=== PATIENT | male | born 1990 | race Hispanic/Latino ===

== ENCOUNTER 2017-07-26 00:32 | Inpatient (IN) | payer MEDICAID, OTHER ==
[~2017-07-26] VITALS: Ht 177.8 cm; Wt 131.5 kg
[2017-07-26 01:43] LABS: BASOPHILS % (AUTO) 0.3 % (0.0-5.0); EOSINOPHILS % (AUTO) 0.5 % (0.0-8.0); HEMATOCRIT 44.3 % (42-54); LYMPHOCYTES % (AUTO) 7.5 % (21.0-51.0); MEAN CORPUSCULAR HEMOGLOBIN 28.6 pg (27.0-33.0); MEAN CORPUSCULAR HGB CONC 33.8 g/dL (32.0-36.0); MEAN CORPUSCULAR VOLUME 84.7 fL (79-99); MONOCYTES % (AUTO) 7.1 % (3.0-13.0); NEUTROPHILS % (AUTO) 84.6 % (40.0-77.0); PLATELET COUNT (AUTO) 288 K/uL (130-400); RED BLOOD CELL COUNT(AUTO) 5.23 MIL/uL (4.50-6.20); RED CELL DISTRIBUTION WIDTH 14.6 % (11.0-15.5); WHITE BLOOD COUNT (AUTO) 14.1 K/uL (4.8-10.8)
[2017-07-26 01:43] LABS: APPEARANCE,URINE Clear (CLEAR); BILIRUBIN,URINE Negative (NEGATIVE); COLOR,URINE Yellow (YELLOW); GLUCOSE, URINE (UA) Negative (NEGATIVE); KETONES,URINE Trace mg/dL (NEGATIVE); LEUKOCYTE ESTERASE ,URINE Moderate (NEGATIVE); NITRATE,URINE Negative (NEGATIVE); OCCULT BLOOD,URINE Large (NEGATIVE); PH,URINE 5.5 (5.0-8.0); PROTEIN,URINE Trace (NEGATIVE)
[2017-07-26 01:53] LABS: CREATININE 1.1 mg/dL (0.5-1.5); POTASSIUM 4.1 mmol/L (3.5-5.1)
[2017-07-26 01:58] LABS: ALBUMIN 3.6 g/dL (3.5-5.0); BILIRUBIN,TOTAL 0.2 mg/dL (0.2-1.0)
[2017-07-26 01:59] LABS: BACTERIA,URINE Few /HPF (None Seen); MUCUS,URINE Many LPF (None Seen); SQUAMOUS EPITHELIAL CELL,UR Moderate /LPF (0-2)
[2017-07-26 02:00] LABS: CALCIUM OXALATE CRYSTALS,UR Moderate /LPF (None Seen)
[2017-07-26] MEDS ORDERED: SODIUM CHLORIDE 0.9% 1000ML 1,000 ML IV ONE ×3 (02:39→05:15)
[2017-07-26] MEDS ORDERED: MORPHINE SULFATE 4 MG/1ML SYG ONE (02:39)
[2017-07-26] MEDS ORDERED: KETOROLAC TROMETHAMINE 30MG/ML ONE (02:39)
[2017-07-26] MEDS ORDERED: TAMSULOSIN HCL 0.4 MG CAP.ER.24H ONE (02:39)
[2017-07-26] MEDS ORDERED: ONDANSETRON HCL 4 MG/2 ML VIAL ONE ×2 (02:39→05:15)
[2017-07-26] MEDS ORDERED: HYDROMORPHONE HCL 0.5 MG/0.5 ML ML ONE (05:15)
[2017-07-26] MEDS ORDERED: CEFTRIAXONE SODIUM 1 GM ONE (09:16)
[2017-07-26] MEDS ORDERED: 1/2 NORMAL SALINE 1,000 ML IV ONE (09:17)
[2017-07-26 11:30] VITALS: BP 123/65
[2017-07-26] MEDS ORDERED: MORPHINE-NS 50 MG/50 ML 50 ML IV ONE (13:00)
[2017-07-26] MEDS: 1/2 NORMAL SALINE 1,000 ML IV SCH ×2 (15:27→23:13)
[2017-07-26] MEDS ORDERED: MORPHINE-NS 50 MG/50 ML 50 ML IV PRN (15:30)
[2017-07-26] MEDS ORDERED: NALOXONE HCL 0.4 MG/1 ML ML IVP PRN (15:30)
[2017-07-26 16:00] VITALS: BP 135/70
[2017-07-26 19:32] VITALS: BP 142/80
[2017-07-26] MEDS: ONDANSETRON HCL 4 MG/2 ML VIAL IVP PRN (23:19)
[2017-07-26 23:27] VITALS: BP 147/78
[2017-07-27 04:54] VITALS: BP 125/53
[2017-07-27 05:47] LABS: HEMATOCRIT 39.6 % (42-54); MEAN CORPUSCULAR HEMOGLOBIN 28.9 pg (27.0-33.0); MEAN CORPUSCULAR HGB CONC 33.5 g/dL (32.0-36.0); MEAN CORPUSCULAR VOLUME 86.3 fL (79-99); PLATELET COUNT (AUTO) 261 K/uL (130-400); RED BLOOD CELL COUNT(AUTO) 4.59 MIL/uL (4.50-6.20); RED CELL DISTRIBUTION WIDTH 14.7 % (11.0-15.5); WHITE BLOOD COUNT (AUTO) 9.9 K/uL (4.8-10.8)
[2017-07-27 06:02] LABS: ALBUMIN 2.8 g/dL (3.5-5.0); BILIRUBIN,TOTAL 0.5 mg/dL (0.2-1.0); CREATININE 0.7 mg/dL (0.5-1.5); POTASSIUM 3.8 mmol/L (3.5-5.1); TOTAL PROTEIN, SERUM 6.6 g/dL (6.0-8.3)
[2017-07-27 08:04] VITALS: BP 109/63
[2017-07-27] MEDS: 1/2 NORMAL SALINE 1,000 ML IV SCH ×3 (08:32→17:12)
[2017-07-27] MEDS: CEFTRIAXONE SODIUM 1 GM IVP SCH (08:33)
[2017-07-27] MEDS: TAMSULOSIN HCL 0.4 MG CAP.ER.24H PO SCH (08:33)
[2017-07-27 11:33] VITALS: BP 148/66
[2017-07-27] MEDS: ACETAMINOPHEN 325 MG TAB PO PRN (15:30)
[2017-07-27 16:58] VITALS: BP 147/80
[2017-07-27] MEDS: ONDANSETRON HCL 4 MG/2 ML VIAL IVP PRN (19:16)
[2017-07-27 19:30] VITALS: BP 131/91
[2017-07-27] MEDS ORDERED: IOPAMIDOL-370 75 ML VIAL IV ONE (20:08)
[2017-07-28] VITALS (7 sets, daily range): BP systolic 123–162; BP diastolic 59–85
[2017-07-28] MEDS: 1/2 NORMAL SALINE 1,000 ML IV SCH ×3 (03:21→19:40)
[2017-07-28] MEDS: TAMSULOSIN HCL 0.4 MG CAP.ER.24H PO SCH (10:12)
[2017-07-28] MEDS: CEFTRIAXONE SODIUM 1 GM IVP SCH (10:12)
[2017-07-28] MEDS: ONDANSETRON HCL 4 MG/2 ML VIAL IVP PRN ×2 (11:54→19:40)
[2017-07-29] VITALS (19 sets, daily range): BP systolic 121–156; BP diastolic 62–88
[2017-07-29] MEDS: 1/2 NORMAL SALINE 1,000 ML IV SCH ×3 (03:07→16:12)
[2017-07-29] MEDS: TAMSULOSIN HCL 0.4 MG CAP.ER.24H PO SCH ×2 (09:00→16:13)
[2017-07-29] MEDS: CEFTRIAXONE SODIUM 1 GM IVP SCH (11:07)
[2017-07-29] MEDS ORDERED: LACTATED RINGERS 1000ML 1,000 ML IV ONE (11:41)
[2017-07-29] MEDS ORDERED: GLYCOPYRROLATE 0.2 MG/ML 5 ML VIAL ONE (12:20)
[2017-07-29] MEDS ORDERED: ONDANSETRON HCL 4 MG/2 ML VIAL ONE (12:20)
[2017-07-29] MEDS ORDERED: LIDOCAINE PF 2% 5ML ABBOJECT ONE (12:20)
[2017-07-29] MEDS ORDERED: DEXAMETHASONE SOD PHOSPHATE 10MG/ML 1ML VIAL ONE (12:20)
[2017-07-29] MEDS ORDERED: FENTANYL CITRATE PF 50 MCG/1 ML 2ML VIAL ONE ×2 (12:21→13:29)
[2017-07-29] MEDS ORDERED: PROPOFOL 10 MG/ML 20ML VIAL IV ONE (12:21)
[2017-07-29] MEDS ORDERED: MIDAZOLAM HCL 1 MG/ML 2ML VIAL ONE (12:21)
[2017-07-29] MEDS ORDERED: MEPERIDINE-PF 50 MG/ML SYG ONE (13:11)
[2017-07-29] MEDS ORDERED: KETOROLAC TROMETHAMINE 30MG/ML ONE (13:21)
[2017-07-30] MEDS: 1/2 NORMAL SALINE 1,000 ML IV SCH (03:40)
[2017-07-30 04:00] VITALS: BP 127/70
[2017-07-30 05:35] LABS: BASOPHILS % (AUTO) 0.6 % (0.0-5.0); EOSINOPHILS % (AUTO) 4.4 % (0.0-8.0); HEMATOCRIT 43.1 % (42-54); LYMPHOCYTES % (AUTO) 22.9 % (21.0-51.0); MEAN CORPUSCULAR HEMOGLOBIN 29.2 pg (27.0-33.0); MEAN CORPUSCULAR HGB CONC 34.2 g/dL (32.0-36.0); MEAN CORPUSCULAR VOLUME 85.4 fL (79-99); NEUTROPHILS % (AUTO) 59.1 % (40.0-77.0); PLATELET COUNT (AUTO) 274 K/uL (130-400); RED BLOOD CELL COUNT(AUTO) 5.04 MIL/uL (4.50-6.20); RED CELL DISTRIBUTION WIDTH 14.5 % (11.0-15.5)
[2017-07-30 05:50] LABS: CREATININE 0.9 mg/dL (0.5-1.5); POTASSIUM 4.4 mmol/L (3.5-5.1)
[2017-07-30 07:45] VITALS: BP 152/92
[2017-07-30] MEDS: CEFTRIAXONE SODIUM 1 GM IVP SCH (09:19)
[2017-07-30] MEDS: TAMSULOSIN HCL 0.4 MG CAP.ER.24H PO SCH (09:19)
[2017-07-30] MEDS: ACETAMINOPHEN 325 MG TAB PO PRN (09:19)
[2017-07-30 12:00] VITALS: BP 138/80
[2017-09-14] MEDS ORDERED: ACET1TAB15 PO (14:04)
== END 2017-07-30 16:43 | disposition home or self-care (01) | DRG 694 ==
LOC: EDH 00:32 → OBSVTOIN 07:40 → EDHIP 07:40 → 4CH 10:29
PROVIDERS: ADMIT Internal Medicine; ATTEND Internal Medicine
PROC: BT1D1ZZ Fluoroscopy of Right Kidney, Ureter and Bladder using Low Osmolar Contrast (ICD-10-PCS; 2017-07-29)
PROC: 0T768DZ Dilation of Right Ureter with Intraluminal Device, Via Natural or Artificial Opening Endoscopic (ICD-10-PCS; principal; 2017-07-29 12:20)
DX: N13.2 Hydronephrosis with renal and ureteral calculous obstruction (principal); I10 Essential (primary) hypertension; Z28.21 Immunization not carried out because of patient refusal; Z90.49 Acquired absence of other specified parts of digestive tract
CPT/HCPCS: 36415; 74176; 74400; 74420; 80048; 80053; 81001; 85025; 85027; 87088; A4218; A4606; C1758; C1769; C2617; J0696; J1100; J1170; J1885; J2001; J2175; J2250; J2270; J2405; J2704; J3010; J3490; J7030; J7120; Q9967

== ENCOUNTER → 2017-09-14 | Outpatient (CLI) | payer OTHER ==
[~2017-09-14] MED LIST: ACET1TAB15 PO
== END | disposition home or self-care (01) ==
LOC: RAH 11:18
PROVIDERS: ATTEND Urology
DX: N20.0 Calculus of kidney (principal)
CPT/HCPCS: 74176

== ENCOUNTER 2017-09-15 06:32 | Observation (INO) | payer OTHER ==
[2017-09-14 13:30] VITALS: BP 129/77
[2017-09-14 13:39] LABS: HEMATOCRIT 44.3 % (42-54); MEAN CORPUSCULAR HEMOGLOBIN 28.9 pg (27.0-33.0); MEAN CORPUSCULAR HGB CONC 33.7 g/dL (32.0-36.0); MEAN CORPUSCULAR VOLUME 85.9 fL (79-99); PLATELET COUNT (AUTO) 328 K/uL (130-400); RED BLOOD CELL COUNT(AUTO) 5.16 MIL/uL (4.50-6.20); RED CELL DISTRIBUTION WIDTH 15.2 % (11.0-15.5); WHITE BLOOD COUNT (AUTO) 10.3 K/uL (4.8-10.8)
[2017-09-14 13:46] LABS: APPEARANCE,URINE Cloudy (CLEAR); BILIRUBIN,URINE Negative (NEGATIVE); COLOR,URINE Orange (YELLOW); GLUCOSE, URINE (UA) Negative (NEGATIVE); KETONES,URINE Negative (NEGATIVE); LEUKOCYTE ESTERASE ,URINE Moderate (NEGATIVE); NITRATE,URINE Negative (NEGATIVE); OCCULT BLOOD,URINE Large (NEGATIVE); PH,URINE 5.5 (5.0-8.0); PROTEIN,URINE POS 2+ (NEGATIVE)
[2017-09-14 13:49] LABS: CREATININE 0.9 mg/dL (0.5-1.5); POTASSIUM 4.3 mmol/L (3.5-5.1)
[2017-09-14 13:51] LABS: BACTERIA,URINE Rare /HPF (None Seen); RBC,URINE TNTC /HPF (0-1); SQUAMOUS EPITHELIAL CELL,UR Rare /HPF (0-2); WBC,URINE 0-1 /HPF (0-1)
[2017-09-14 14:08] LABS: INR 1.01 (0.85-1.15); PARTIAL THROMBOPLASTIN TIME 27.4 SEC (26.3-35.5); PROTHROMBIN TIME 10.4 SEC (9.6-11.6)
[2017-09-15] VITALS (27 sets, daily range): BP systolic 117–153; BP diastolic 67–86
[~2017-09-15] VITALS: Ht 175.3 cm; Wt 134.4 kg
[2017-09-15] MEDS: CEFAZOLIN SODIUM 1 GM VIAL IVP SCH ×4 (06:30→21:55)
[2017-09-15] MEDS ORDERED: GLYCOPYRROLATE 0.2 MG/ML 5 ML VIAL ONE (06:44)
[2017-09-15] MEDS ORDERED: LIDOCAINE PF 2% 5ML ABBOJECT ONE (06:44)
[2017-09-15] MEDS ORDERED: DEXAMETHASONE SOD PHOSPHATE 10MG/ML 1ML VIAL ONE (06:44)
[2017-09-15] MEDS ORDERED: MIDAZOLAM HCL 1 MG/ML 2ML VIAL ONE (06:45)
[2017-09-15] MEDS ORDERED: FENTANYL CITRATE PF 50 MCG/1 ML 2ML VIAL ONE (06:45)
[2017-09-15] MEDS ORDERED: PROPOFOL 10 MG/ML 20ML VIAL IV ONE (06:45)
[2017-09-15] MEDS ORDERED: LACTATED RINGERS 1000ML 1,000 ML IV ONE (06:52)
[2017-09-15] MEDS ORDERED: ISOVUE-370 50ML VIAL IV ONE (07:05)
[2017-09-15] MEDS ORDERED: PHENYLEPHRINE HCL 10 MG/ML 1ML VIAL IV ONE (07:26)
[2017-09-15] MEDS ORDERED: NEOSTIGMINE METHYLSULFATE 1MG/ML IV ONE (07:50)
[2017-09-15] MEDS ORDERED: MEPERIDINE-PF 25 MG/ML SYG ONE ×2 (08:23→08:35)
[2017-09-15] MEDS ORDERED: ONDANSETRON HCL MDV 20ML 2 MG/ML VIAL IVP PRN (09:45)
[2017-09-15] MEDS ORDERED: ACETAMINOPHEN-CODEINE 300/30MG TAB PO PRN (10:00)
[2017-09-15] MEDS ORDERED: MEPERIDINE-PF 100 MG/ML SYG IM PRN (10:00)
[2017-09-15] MEDS: DEXTROSE 5 %-0.45 % NACL 1,000 ML IV SCH ×2 (10:58→22:04)
[2017-09-16] VITALS: BP 135/77
[2017-09-16 04:00] VITALS: BP 113/71
[2017-09-16] MEDS: CEFAZOLIN SODIUM 1 GM VIAL IVP SCH (05:34)
[2017-09-16 05:41] LABS: MEAN CORPUSCULAR HEMOGLOBIN 28.8 pg (27.0-33.0); MEAN CORPUSCULAR HGB CONC 33.5 g/dL (32.0-36.0); PLATELET COUNT (AUTO) 280 K/uL (130-400); RED BLOOD CELL COUNT(AUTO) 4.65 MIL/uL (4.50-6.20); RED CELL DISTRIBUTION WIDTH 14.9 % (11.0-15.5); WHITE BLOOD COUNT (AUTO) 13.2 K/uL (4.8-10.8)
[2017-09-16 05:53] LABS: CREATININE 0.8 mg/dL (0.5-1.5); POTASSIUM 3.6 mmol/L (3.5-5.1)
[2017-09-16 07:00] VITALS: BP 123/70
[2017-09-16] MEDS ORDERED: TYLENOL W CODEINE PO PRN (09:00)
== END 2017-09-16 10:28 | disposition home or self-care (01) ==
LOC: SUH 06:32 → DAH 06:32 → SUH 06:33 → DAHIP 06:33 → 4BH 09:04
PROVIDERS: ADMIT Urology; ATTEND Urology
DX: N20.1 Calculus of ureter (principal)
CPT/HCPCS: 36415 ×2; 52332; 71046; 74420; 80048 ×2; 81001; 85027 ×2; 85610; 85730; 87088; 88300; 93005; 96374; 96376 ×2; A4218 ×4; A4354; A4358; A4600; A4606; A4930; A5113; C1751; C1769 ×4; C2617; G0378 ×28; J0690 ×4; J1100; J2001; J2175 ×2; J2250; J2370; J2704; J2710; J3010; J3490; J7042 ×2; J7120; Q9967

== ENCOUNTER 2018-12-26 20:47 | Observation (INO) | payer OTHER ==
[~2018-12-26] VITALS: Ht 162.6 cm; Wt 136.1 kg
[2018-12-26 21:15] LABS: BASOPHILS % (AUTO) 0.7 % (0.0-5.0); EOSINOPHILS % (AUTO) 3.4 % (0.0-8.0); HEMATOCRIT 43.7 % (42-54); LYMPHOCYTES % (AUTO) 28.3 % (21.0-51.0); MEAN CORPUSCULAR HEMOGLOBIN 28.9 pg (27.0-33.0); MEAN CORPUSCULAR VOLUME 87.4 fL (79-99); MONOCYTES % (AUTO) 9.6 % (3.0-13.0); PLATELET COUNT (AUTO) 277 K/uL (130-400); RED CELL DISTRIBUTION WIDTH 14.7 % (11.0-15.5)
[2018-12-26] MEDS ORDERED: PROCHLORPERAZINE EDISYLATE 10 MG/2 ML VIAL ONE (21:17)
[2018-12-26] MEDS ORDERED: DiphenhydrAMINE HCL 50 MG/ML VIAL ONE (21:17)
[2018-12-26] MEDS ORDERED: ACETAMINOPHEN 325 MG TAB ONE (21:17)
[2018-12-26] MEDS ORDERED: SODIUM CHLORIDE 0.9% 1000ML 1,000 ML IV ONE (21:19)
[2018-12-26 21:30] LABS: CREATININE 0.9 mg/dL (0.5-1.5); POTASSIUM 3.6 mmol/L (3.5-5.1)
[2018-12-26 21:33] LABS: ALBUMIN 3.3 g/dL (3.5-5.0)
[2018-12-26 21:50] LABS: BILIRUBIN,TOTAL 0.2 mg/dL (0.2-1.0); TOTAL PROTEIN, SERUM 7.4 g/dL (6.0-8.3)
[2018-12-26 21:58] LABS: B-TYPE NATRIURETIC PEPTIDE 9 pg/mL (0-100)
[2018-12-26] MEDS ORDERED: ASPIRIN 81MG TAB.CHEW ONE (22:27)
[2018-12-26] MEDS ORDERED: METOPROLOL TARTRATE 25 MG TAB ONE (22:50)
[2018-12-27] MEDS ORDERED: METOPROLOL TARTRATE 25 MG TAB PO SCH (01:00)
[2018-12-27] MEDS ORDERED: ONDANSETRON HCL 4 MG/2 ML VIAL IVP PRN (01:15)
[2018-12-27] MEDS ORDERED: MORPHINE SULFATE 2 MG/ML 1ML SYG IVP PRN (01:15)
[2018-12-27] MEDS ORDERED: NITROGLYCERIN 0.4 MG SL TAB SL PRN (01:15)
[2018-12-27 04:35] VITALS: BP 120/68
--- NOTE | 2018-12-27 04:50 | NUR ---
ADMIT PT ADMITTED TO ROOM 402, AAOX3. DENIES ANY CP AT THIS TIME. ADMISSION CARE DONE. ADMISSION DATA BASE COMPLETED. TELE MONITOR PLACED, READING AT SINUS SINDY ON THE 50'S. PT'S PIV ACCIDENTALLY PULLED OUT BY PT WHEN MOVING IN BED, CATHETER INTACT. RE-INSERTED PIV G20 TO LEFT WRIST. PT TOLERATED RE-INSERTION WELL. IN FOR MORE CARE AND MANAGEMENT. Addendum: 12/27/18 at 0608 by BEBETO TRAN RN RN Amended: Links added.
[2018-12-27 07:54] VITALS: BP 120/63
[2018-12-27] MEDS: METOPROLOL TARTRATE 25 MG TAB PO SCH ×2 (09:00→20:30)
[2018-12-27] MEDS: PANTOPRAZOLE SODIUM 40 MG TABLET.DR PO SCH (09:09)
[2018-12-27] MEDS: ASPIRIN 325 MG TABLET PO SCH (09:09)
--- NOTE | 2018-12-27 09:09 | NUR ---
Scheduled metoprolol due at present, BP currently 120/63,but hr is 58 manually. Clarified with Rosetta Shafer NP with [facility]. Rec'd instructions to hold for SBP less than 110 and HR less than 60.
[2018-12-27] MEDS: ENOXAPARIN SODIUM 40 MG/0.4 ML SYRINGE SQ SCH (09:10)
[2018-12-27] MEDS: ACETAMINOPHEN 325 MG TAB PO PRN ×2 (09:25→15:41)
[2018-12-27 09:46] LABS: CREATINE KINASE, TOTAL 234 U/L (21-232); HEMOGLOBIN A1C 5.8 % (4.0-6.0); MYOGLOBIN 49 ng/mL (10-92); TROPONIN I < 0.04 ng/mL (0.00-0.06)
--- NOTE | 2018-12-27 09:50 | NUR ---
INITIAL MET W PT ALONE, AAOX3, [employer] OF [employer], EMPLOYED, LIVES W MOM, WORKS IN HEALTH CARE, STRONG FAMILY HX OF HEART DISEASE, ADMIT W CHEST PAIN, APPEARS ANXIOUS ABOUT HIS RISK FACTORS RD CONSULT REQUESTED TO JOSEPH GARCÍA, DCP IS HOME CM TO FOLLOW Addendum: 12/27/18 at 1700 by AILYN NAJERA RN CM Amended: Links added.
[2018-12-27] MEDS ORDERED: POTASSIUM CHLORIDE 20MEQ/100ML 100 ML IV PRN (10:15)
[2018-12-27] MEDS ORDERED: POTASSIUM CHLORIDE 10% ELIXIR 20 MEQ/15 ML UDCUP PO PRN (10:15)
[2018-12-27] MEDS ORDERED: LIDOCAINE HCL-MPF 1% 2ML VIAL IVP PRN (10:15)
--- NOTE | 2018-12-27 10:24 | NUR ---
Luis Valenzuela of [facility] consult.
[2018-12-27 10:52] VITALS: BP 136/70
[2018-12-27 12:05] LABS: AMPHET/METH SCREEN,URINE NEGATIVE (NEGATIVE); BARBITURATE SCREEN, URINE NEGATIVE (NEGATIVE); BENZODIAZEPINES SCREEN,URINE NEGATIVE (NEGATIVE); CANNABINOID SCREEN,URINE POSITIVE (NEGATIVE); COCAINE SCREEN,URINE NEGATIVE (NEGATIVE); OPIATE SCREEN,URINE NEGATIVE (NEGATIVE); PHENCYCLIDINE SCREEN,URINE NEGATIVE (NEGATIVE)
[2018-12-27 15:37] LABS: CREATINE KINASE, TOTAL 216 U/L (21-232); MYOGLOBIN 42 ng/mL (10-92); TROPONIN I < 0.04 ng/mL (0.00-0.06)
[2018-12-27] MEDS: POTASSIUM CHLORIDE 20 MEQ ERTAB PO PRN ×2 (15:41→17:16)
[2018-12-27] MEDS ORDERED: KETOROLAC TROMETHAMINE 15MG/ML IV PRN (15:45)
--- NOTE | 2018-12-27 15:54 | NUR ---
Diet Education LIUDMILA provided Heart Healthy Diet education as Pt request for education d/t admit for chest pain and family Hx of CVD (as per RN). RD reviewed reference materials and handouts with Pt. Pt engaged during diet education. Pt with no questions but verbalized understanding and motivation to review educational materials. LIUDMILA encouraged Pt to notify as questions or concerns arise. RD to follow up. Addendum: 12/27/18 at [address] RD Amended: Links added.
[2018-12-27 16:00] VITALS: BP 130/70
[2018-12-27] MEDS ORDERED: KETOROLAC TROMETHAMINE 15MG/ML ONE (16:15)
[2018-12-27 19:30] VITALS: BP 133/81
--- NOTE | 2018-12-27 20:30 | NUR ---
MEDS SHIFT ASSESSMENT DONE, PLEASE REFER TO CHARTS. DUE MEDS ADMINISTERED, TOLERATED WELL. KEPT RESTED AND COMFORTABLE. CALL LIGHT WITHIN REACH. WILL MONITOR PT. Addendum: 12/28/18 at 0046 by BEBETO TRAN RN RN Amended: Links added.
--- NOTE | 2018-12-27 21:55 | NUR ---
PAIN PT COMPLAINTS OF HEADACHE. MEDICATED WITH TORADOL IV. KEPT RESTED IN BED. WILL RE-ASSESS PT.
[2018-12-28] VITALS: BP 109/59
--- NOTE | 2018-12-28 02:00 | NUR ---
ROUNDS PT RESTING WELL, FAIRLY ASLEEP WITH RESPIRATIONS EVEN AND UNLABORED. NO NOTED DISTRESS. KEPT UNDISTURBED FOR NOW. WILL CONTINUE TO MONITOR. CALL LIGHT WITHIN REACH.
[2018-12-28 04:00] VITALS: BP 126/71
[2018-12-28 04:36] LABS: BASOPHILS % (AUTO) 0.3 % (0.0-5.0); EOSINOPHILS % (AUTO) 3.6 % (0.0-8.0); HEMATOCRIT 42.8 % (42-54); LYMPHOCYTES % (AUTO) 27.7 % (21.0-51.0); MEAN CORPUSCULAR HEMOGLOBIN 29.5 pg (27.0-33.0); MEAN CORPUSCULAR HGB CONC 33.2 g/dL (32.0-36.0); MEAN CORPUSCULAR VOLUME 88.7 fL (79-99); MONOCYTES % (AUTO) 8.6 % (3.0-13.0); NEUTROPHILS % (AUTO) 59.8 % (40.0-77.0); PLATELET COUNT (AUTO) 287 K/uL (130-400); RED BLOOD CELL COUNT(AUTO) 4.82 MIL/uL (4.50-6.20); WHITE BLOOD COUNT (AUTO) 9.8 K/uL (4.8-10.8)
[2018-12-28 04:59] LABS: CREATININE 1.1 mg/dL (0.5-1.5); PHOSPHORUS 4.2 mg/dL (2.5-4.9); POTASSIUM 4.2 mmol/L (3.5-5.1)
--- NOTE | 2018-12-28 06:15 | NUR ---
REPORT REPORT GIVEN TO TELMA STUART SHIFT NURSE. FOR MORE CARE AND MANAGEMENT.
[2018-12-28 07:40] VITALS: BP 126/65
[2018-12-28] MEDS: METOPROLOL TARTRATE 25 MG TAB PO SCH (08:43)
[2018-12-28] MEDS: PANTOPRAZOLE SODIUM 40 MG TABLET.DR PO SCH (08:43)
[2018-12-28] MEDS: ASPIRIN 325 MG TABLET PO SCH (08:43)
[2018-12-28] MEDS: ENOXAPARIN SODIUM 40 MG/0.4 ML SYRINGE SQ SCH (08:44)
--- NOTE | 2018-12-28 10:24 | NUR ---
2-D ECHO CALLED [facility] AND WAS SENT TO [email or web address]. MESSAGE WAS LEFT THAT THE PATIENT IS READY FOR DISCHARGE ONCE ECHO IS COMPLETE. PENDING CALL BACK.
[2018-12-28 11:00] VITALS: BP 122/62
--- NOTE | 2018-12-28 12:26 | NUR ---
CALL TO [employer] T/C PLACED TO [phone], NO ANSWER, LEFT MESSAGE TO CALL NARC[facility]. CALL SASHA Buchanan DIRECTOR, TO INFORM HIM.
--- NOTE | 2018-12-28 14:25 | NUR ---
INSTRUCTIONS DISCHARGE INSTRUCTIONS GIVEN TO PATIENT USING TEACH BACK. IV REMOVED FROM LEFT FOREARM WITH TIP INTACT. DIRECT PRESSURE APPLIED UNTIL BLEEDING CONTROLLED THEN SITE COVERED WITH GAUZE AND SECURED WITH TAPE. F/U APPOINTMENT WITH HEART CLINIC MADE WELL AN OUTPATIENT 2-D ECHO. NO QUESTIONS OR CONCERNS VOICED. PENDING RIDE HOME.
== END 2018-12-28 15:07 | disposition home or self-care (01) ==
LOC: EDH 20:47 → EDHIP 22:11 → 4AH 12-27 04:39
PROVIDERS: ADMIT Internal Medicine; ATTEND Internal Medicine
DX: R07.89 Other chest pain (principal); E66.9 Obesity, unspecified; F17.200 Nicotine dependence, unspecified, uncomplicated; F12.90 Cannabis use, unspecified, uncomplicated; Z82.49 Family history of ischemic heart disease and other diseases of the circulatory system; Z87.442 Personal history of urinary calculi; Z79.899 Other long term (current) drug therapy
CPT/HCPCS: 36415 ×3; 70450; 71045; 80048; 80053; 80305; 82550 ×2; 83036; 83690; 83735; 83874 ×2; 83880; 84100; 84484 ×4; 85025 ×2; 85378; 93005 ×2; 96372 ×2; 96374; 99284; G0378 ×41; J0780; J1200; J1650 ×2; J1885 ×2; J7030

== ENCOUNTER 2020-06-13 23:14 | Emergency (ER) | payer OTHER ==
[2020-06-13] MEDS ORDERED: ASPIRIN 325 MG TABLET ONE (23:43)
[2020-06-14 00:14] LABS: CREATININE 1.1 mg/dL (0.5-1.5); POTASSIUM 3.7 mmol/L (3.5-5.1)
[2020-06-14 00:18] LABS: PROTHROMBIN TIME 10.7 SEC (9.6-11.6)
[2020-06-14 00:18] LABS: BASOPHILS % (AUTO) 0.4 % (0.0-5.0); EOSINOPHILS % (AUTO) 3.9 % (0.0-8.0); HEMATOCRIT 44.4 % (42-54); LYMPHOCYTES % (AUTO) 24.1 % (21.0-51.0); MEAN CORPUSCULAR HEMOGLOBIN 27.8 pg (27.0-33.0); MEAN CORPUSCULAR HGB CONC 32.9 g/dL (32.0-36.0); MEAN CORPUSCULAR VOLUME 84.6 fL (79-99); MONOCYTES % (AUTO) 9.5 % (3.0-13.0); NEUTROPHILS % (AUTO) 61.8 % (40.0-77.0); PLATELET COUNT (AUTO) 308 K/uL (130-400); RED BLOOD CELL COUNT(AUTO) 5.25 MIL/uL (4.50-6.20); RED CELL DISTRIBUTION WIDTH 14.5 % (11.0-15.5); WHITE BLOOD COUNT (AUTO) 12.2 K/uL (4.8-10.8)
[2020-06-14 00:19] LABS: ALBUMIN 3.4 g/dL (3.5-5.0); BILIRUBIN,TOTAL 0.2 mg/dL (0.2-1.0); PARTIAL THROMBOPLASTIN TIME 27.1 SEC (26.3-35.5); TOTAL PROTEIN, SERUM 7.8 g/dL (6.0-8.3)
[2020-06-14 00:27] LABS: APPEARANCE,URINE Clear (CLEAR); BILIRUBIN,URINE Negative (NEGATIVE); COLOR,URINE Yellow (YELLOW); GLUCOSE, URINE (UA) Negative (NEGATIVE); KETONES,URINE Negative (NEGATIVE); LEUKOCYTE ESTERASE ,URINE Small (NEGATIVE); NITRATE,URINE Negative (NEGATIVE); OCCULT BLOOD,URINE Negative (NEGATIVE); PROTEIN,URINE Negative (NEGATIVE); UROBILINOGEN,URINE 0.2 mg/dL (0.2-1.0)
[2020-06-14 00:44] LABS: B-TYPE NATRIURETIC PEPTIDE < 5 pg/mL (0-100)
[2020-06-14 00:52] LABS: BACTERIA,URINE Rare /HPF (None Seen); RBC,URINE 0-1 /HPF (0-1)
== END 2020-06-14 04:22 | disposition home or self-care (01) ==
LOC: EDH 23:14
DX: R06.02 Shortness of breath (principal); F45.0 Somatization disorder; E66.01 Morbid (severe) obesity due to excess calories; I10 Essential (primary) hypertension; Z68.42 Body mass index [BMI] 45.0-49.9, adult
CPT/HCPCS: 36415; 71045; 80053; 81001; 82550; 83880; 84484; 85025; 85610; 85730; 87088; 93005